=== PATIENT | female | born 1960 ===

== ENCOUNTER 2020-07-25 07:38 | Day surgery (SDC) | payer OTHER ==
[~2020-07-25 07:38] MED LIST: ASA81 MG PO; CLONAZEPAM1 M1 PO; GABAPENTIN800 M1 PO; HYZAAR 50-12.51 EACH PO; METFORMIN HCL500 M3 PO; MOBIC7.5 MG PO; PROTONIX40 MG PO; PROZAC40 MG PO; SINGULAIR10 MG PO; SYMBICORT 16010.2 GM IH
[2020-07-25] MEDS ORDERED: PERCOCET 5-3251 EACH PO (12:04)
== END 2020-07-25 14:45 | disposition home or self-care (01) ==
LOC: CIR.AMB 07:38
PROVIDERS: ATTEND Surgery
DX: E04.1 Nontoxic single thyroid nodule (principal)